=== PATIENT | female | born 2000 | race Caucasian/White ===

== ENCOUNTER 2020-09-23 11:15 | Inpatient (IN) | payer OTHER ==
[~2020-09-23] VITALS: Ht 170.2 cm; Wt 54.4 kg
[2020-09-23] MEDS ORDERED: COLACE 100MG C100 MG PO (11:57)
[2020-09-23] MEDS ORDERED: IBUPROFEN600 MG PO (11:57)
[2020-09-23 12:05] LABS: HEMOGLOBIN 11.7 gm/dl (12.3-15.3); RED BLOOD COUNT 3.92 M/UL (4.00-5.10); WHITE BLOOD COUNT 21.5 K/UL (4.5-11.0)
[2020-09-23] MEDS ORDERED: PRENATAL VITAM1 EAC3 PO (15:50)
[2020-09-24 06:04] LABS: HEMOGLOBIN 9.7 gm/dl (12.3-15.3)
[2020-09-25] MEDS ORDERED: HEMOCYTE324 MG PO (12:37)
== END 2020-09-25 13:44 | disposition home or self-care (01) | DRG 806 ==
LOC: GENOP 11:15 → OB 11:27
PROVIDERS: ADMIT Obstetrics & Gynecology
PROC: 10E0XZZ Delivery of Products of Conception, External Approach (ICD-10-PCS; principal; 2020-09-23)
PROC: 4A1HXCZ Monitoring of Products of Conception, Cardiac Rate, External Approach (ICD-10-PCS; 2020-09-23)
DX: O99.284 Endocrine, nutritional and metabolic diseases complicating childbirth (principal); F11.20 Opioid dependence, uncomplicated; Z37.0 Single live birth; E05.90 Thyrotoxicosis, unspecified without thyrotoxic crisis or storm; O99.324 Drug use complicating childbirth; O99.334 Smoking (tobacco) complicating childbirth; F15.90 Other stimulant use, unspecified, uncomplicated; F17.210 Nicotine dependence, cigarettes, uncomplicated; O99.344 Other mental disorders complicating childbirth; Z20.822 Contact with and (suspected) exposure to COVID-19; F32.9 Major depressive disorder, single episode, unspecified; Z3A.38 38 weeks gestation of pregnancy
CPT/HCPCS: 36415; 80307; 82800; 85014; 85018; 85025; 90715; U0002